=== PATIENT | female | born 2000 | race Caucasian/White ===

== ENCOUNTER 2022-07-29 18:04 | Emergency (ER) | payer OTHER ==
[2022-07-29 18:46] LABS: BASOPHILS % (AUTO) 0.4 %; EOSINOPHILS # (AUTO) 0.1 10^3/uL (0.0-0.7); EOSINOPHILS % (AUTO) 0.9 %; HCT - HEMATOCRIT 30.3 % (37.0-47.0); HGB - HEMOGLOBIN 8.7 g/dL (12.0-16.0); LYMPHOCYTES # (AUTO) 1.8 10^3/uL (1.5-3.5); LYMPHOCYTES % (AUTO) 18.4 %; MEAN CORPUSCULAR HEMOGLOBIN 21.4 pg (27.0-31.0); MEAN CORPUSCULAR HGB CONC 28.7 g/dL (32.0-36.0); MEAN CORPUSCULAR VOLUME 74.6 fL (81.0-99.0); MONOCYTES # (AUTO) 0.7 10^3/uL (0.0-1.0); MONOCYTES % (AUTO) 7.6 %; NEUTROPHILS # (AUTO) 6.9 10^3/uL (1.5-6.6); NEUTROPHILS % (AUTO) 72.4 %; PLT - PLATELET COUNT 283 10^3/uL (130-450); RED BLOOD COUNT 4.06 10^6/uL (4.20-5.40); RED CELL DISTRIBUTION WIDTH 16.7 % (12.0-15.0); WHITE BLOOD COUNT 9.5 x10^3/uL (4.8-10.8)
[2022-07-29 18:59] LABS: ALBUMIN 4.3 g/dL (3.2-5.5); ALBUMIN/GLOBULIN RATIO 1.1 (1.0-2.2); BILIRUBIN,TOTAL 0.2 mg/dL (0.2-1.0); CALCIUM 9.3 mg/dL (8.5-10.3); CREATININE 0.6 mg/dL (0.4-1.0); POTASSIUM 3.6 mmol/L (3.5-5.0); TOTAL PROTEIN 8.2 g/dL (6.7-8.2)
[2022-07-29 18:59] LABS: BILIRUBIN,URINE NEGATIVE (NEGATIVE); GLUCOSE, URINE (UA) NEGATIVE (NEGATIVE); KETONES,URINE (UA) NEGATIVE (NEGATIVE); LEUKOCYTE ESTERASE, URINE TRACE (NEGATIVE); NITRITE,URINE NEGATIVE (NEGATIVE); OCCULT BLOOD,URINE NEGATIVE (NEGATIVE); PROTEIN,URINE NEGATIVE (NEGATIVE); UROBILINOGEN,URINE 0.2 (NORMAL) E.U./dL (NORMAL)
[2022-07-29 19:02] LABS: CLARITY,URINE HAZY (CLEAR); HCG UR QUAL POSITIVE
[2022-07-29 19:05] LABS: BACTERIA,URINE Few /HPF (None Seen); RBC,URINE 0-5 /HPF (0-5); SQUAMOUS EPITHELIAL CELL,UR FEW Squamous (<= Few)
--- NOTE | 2022-07-29 19:46 | ED Physician Documentation ---
History of Present Illness - Stated complaint Stated Complaint: ABD PX - Chief complaint Chief Complaint: UTI - Additonal information Additional information: 21-year-old female presents emergency department for evaluation of lower abdominal pain and some dysuria. For about a week she has intermittently had some focal left-sided pain. Occasionally it has hurt to pee therefore she presents to the ER today. She is incidentally found to be on the urinalysis which the patient was not aware of. Patient denies any pertinent past medical history or surgeries. She does admit to drinking and vaping recently LMP 05/30/2022 G1, P0. This is a desired . Review of Systems Constitutional: denies: Fever, Chills Throat: reports: Reviewed and negative Cardiac: reports: Reviewed and negative Respiratory: reports: Reviewed and negative GI: reports: Abdominal Pain. denies: Nausea, Vomiting : reports: Dysuria Skin: reports: Reviewed and negative Musculoskeletal: reports: Reviewed and negative PD PAST MEDICAL HISTORY - Past Medical History Past Medical History: No - Past Surgical History Past Surgical History: No - Present Medications Home Medications: Ambulatory Orders Medication Instructions Recorded Confirmed cephALEXin [Keflex] 500 mg PO BID #14 cap 07/29/22 - Allergies Allergies/Adverse Reactions: Allergies Allergy/AdvReac Type Severity Reaction Status Date / Time No Known Drug Allergies Allergy Verified 07/29/22 18:28 - Social History Does the pt smoke?: No Smoking Status: Never smoker Does the pt drink ETOH?: No Does the pt have substance abuse?: No - Immunizations Immunizations are current?: Yes PD ED PE NORMAL - General General: Alert and oriented X 3, No acute distress, Well developed/nourished - HEENT HEENT: Atraumatic, Moist mucous membranes - Neck Neck: Supple, no meningeal sign, No adenopathy - Cardiac Cardiac: RRR, No murmur - Respiratory Respiratory: No respiratory distress, Clear bilaterally - Abdomen Abdomen: Normal bowel sounds, Soft. No: Non tender (Mild tenderness with palpation of the left lower quadrant. No guarding or rebound.) - Back Back: No CVA TTP - Derm Derm: Normal color, Warm and dry, No rash - Extremities Extremities: No deformity, No tenderness to palpate, Normal ROM s pain - Neuro Neuro: Alert and oriented X 3, administration clerk 2-12 intact Eye Opening: Spontaneous Motor: Obeys Commands Verbal: Oriented GCS Score: 15 Results - Vitals Vitals: Vital Signs - 24 hr 07/29/22 07/29/22 18:26 20:53 Temperature 36.0 C L 36.3 C L Heart Rate 90 79 Respiratory 20 18 Rate Blood Pressure 134/54 H 131/65 H O2 Saturation 100 99 Oxygen O2 Source Room air - Labs Labs: Laboratory Tests 07/29/22 07/29/22 07/29/22 18:41 18:41 18:53 WBC 9.5 RBC 4.06 L Hgb 8.7 L Hct 30.3 L MCV 74.6 L MCH 21.4 L MCHC 28.7 L RDW 16.7 H Plt Count 283 MPV 10.0 Neut # (Auto) 6.9 H Lymph # (Auto) 1.8 [place] # (Auto) 0.7 Eos # (Auto) 0.1 Baso # (Auto) 0.0 Absolute Nucleated RBC 0.00 Nucleated RBC % 0.0 Sodium 136 Potassium 3.6 Chloride 104 Carbon Dioxide 24 Anion Gap 8.0 BUN 9 Creatinine 0.6 Estimated GFR (MDRD) 124 Glucose 90 Calcium 9.3 Total Bilirubin 0.2 AST 14 ALT 10 Alkaline Phosphatase 33 L Total Protein 8.2 Albumin 4.3 Globulin 3.9 Albumin/Globulin Ratio 1.1 Lipase 36 HCG, Quant Urine Color YELLOW Urine Clarity HAZY Urine pH 6.0 Ur Specific [place] 1.025 Urine Protein NEGATIVE Urine Glucose (UA) NEGATIVE Urine Ketones NEGATIVE Urine Occult Blood NEGATIVE Urine Nitrite NEGATIVE Urine Bilirubin NEGATIVE Urine Urobilinogen 0.2 (NORMAL) Ur Leukocyte Esterase TRACE H Urine RBC 0-5 Urine WBC 11-25 H Ur Squamous Epith Cells FEW Squamous Urine Bacteria Few Ur Microscopic Review INDICATED Urine Culture Comments INDICATED Urine HCG, Qual POSITIVE Blood Type 07/29/22 07/29/22 19:48 19:48 WBC RBC Hgb Hct MCV MCH MCHC RDW Plt Count MPV Neut # (Auto) Lymph # (Auto) [place] # (Auto) Eos # (Auto) Baso # (Auto) Absolute Nucleated RBC Nucleated RBC % Sodium Potassium Chloride Carbon Dioxide Anion Gap BUN Creatinine Estimated GFR (MDRD) Glucose Calcium Total Bilirubin AST ALT Alkaline Phosphatase Total Protein Albumin Globulin Albumin/Globulin Ratio Lipase HCG, Quant 992.12 Urine Color Urine Clarity Urine pH Ur Specific [place] Urine Protein Urine Glucose (UA) Urine Ketones Urine Occult Blood Urine Nitrite Urine Bilirubin Urine Urobilinogen Ur Leukocyte Esterase Urine RBC Urine WBC Ur Squamous Epith Cells Urine Bacteria Ur Microscopic Review Urine Culture Comments Urine HCG, Qual Blood Type O NEGATIVE - Rads (name of study) OB US Radiology: Other (Per dairy manufacturing technologist questionable early gestational sac measuring at 4 weeks 6 days. Left subchorionic bleed 1.9 Centimeters.) PD MEDICAL DECISION MAKING - ED course Complexity details: reviewed results, re-evaluated patient ED course: 21-year-old female presents emergency department for left lower quadrant abdominal pain and urinary symptoms. Symptoms have been intermittent for 1 week. She was incidentally found to be today on her UA. Urinalysis today is consistent with infection. Given she will be star jamey on Keflex. Given the left lower quadrant abdominal pain we did complete a pelvic ultrasound that shows an early gestational sac measuring just over 4 weeks. Her quant is just over 900. CBC today is interesting in that it shows a marked anemia with a hemoglobin of 8.7. Patient reports that she thinks she is anemic because she likes to eat ice she rarely eats meat. I am encouraging her to begin taking a daily multivitamin and we discussed the anemia in can be concerning. We also discussed that the ultrasound showed a very small subchorionic hemorrhage that could threaten the and that this is a desired . She is encouraged to establish with OB as soon as possible. I have given her the name of our Dr. Vern De Oliveira. Emergent return precautions were discussed. Departure - Departure Disposition: 01 Home, Self Care Clinical Impression: Acute cystitis during in first trimester Subchorionic hemorrhage in first trimester Qualifiers: Fetus number: single or unspecified fetus Qualified Code(s): O41.8X10 - Other specified disorders of amniotic fluid and membranes, first trimester, not applicable or unspecified; O46.8X1 - Other antepartum hemorrhage, first trimester Anemia Qualifiers: Anemia type: iron deficiency Iron deficiency anemia type: inadequate dietary iron intake Qualified Code(s): D50.8 - Other iron deficiency anemias Instructions: ED Preg Established Normal Sxs Follow-Up: Vern De Oliveira MD [Provider Admit Priv/Credential] - Prescriptions: cephALEXin [Keflex] 500 mg PO BID #14 cap Comments: You are seen today in the emergency department for urinary symptoms. You do have a urinary tract infection. However you are also incidentally found to be . The ultrasound today measures you at just over 4 weeks . There was a finding called a subchorionic hemorrhage near the uterus. This can sometimes threaten pregnancies but at this time you are asymptomatic. In order to treat the urinary tract infection a prescription for Keflex has been sent to the [facility] in [place]. Our labs today also show that you are fairly anemic with a hemoglobin of 8.7. I encourage you to begin taking a daily multivitamin that it includes iron and folate. It is important that you establish with an OB to help you manage the rest of this . I have given you the name of Dr. De Oliveira one of the OB providers here at [facility]. At any point you develop fevers, have severe vaginal bleeding, sudden severe lower abdominal pain or any uncontrolled vomiting then please return to the ER for second evaluation
[2022-07-29 20:54] VITALS: BP 131/65
[2022-07-29] MEDS ORDERED: cephALEXin 250 MG CAPSULE PO STA (21:01)
--- NOTE | 2022-07-29 23:13 | Ultrasound Report ---
PROCEDURE: OB First Trimester w/TV INDICATIONS: cramping OUTSIDE/PRIOR DATING DATA: Last menstrual period (LMP): Unsure. TECHNIQUE: Real-time scanning was performed of the fetus and maternal pelvic organs, with image documentation. Endovaginal scanning was also performed to better visualize the fetus and maternal ovaries. COMPARISON: None. FINDINGS: Embryo: There is a small hypoechoic cystic structure within the uterus which may represent a small g estational sac. This demonstrates a mean sac diameter of 0.24 cm corresponding to gestational age of 4 weeks 6 days. There is an adjacent hypoechoic region suggestive of a subchorionic hematoma measurin g up to 1.9 x 0.3 x 1 cm. Measurement variability in dating: +/- 4 weeks by LMP, +/- 7 days by mean sac diameter (use before 6 weeks gestation if crown-rump length not able to be measured), +/- 5 days by crown-rump length (6-12 weeks gestation). Maternal organs: There is a thick-walled cystic structure within the left ovary measuring approximate ly 1.7 x 1.8 x 1.5 cm which may represent a corpus luteal cyst. Right ovary appears within normal siz e limits without adnexal mass. IMPRESSION: 1. Small hypoechoic structure within the uterus represent a small gestational sac measurements corres ponding to a gestational age of 4 weeks 6 days and estimated delivery date of approximately 04/01/2023. However, this may also reflect a pseudo-gestational sac. Ectopic cannot be excluded. Clini tanika follow-up is recommended as well as a repeat ultrasound if indicated. 2. Thick wall cystic structure within the left ovary likely represents a corpus luteal cyst. 3. Small subchorionic hematoma. Reviewed by: Sj Brito MD on 07/29/2022 11:12 PM PDT Approved by: Sj Brito MD on 07/29/2022 11:12 PM PDT Station ID: [id number]
== END 2022-07-29 21:18 | disposition home or self-care (01) ==
LOC: ED 18:04
DX: O23.11 Infections of bladder in pregnancy, first trimester (principal); Z3A.01 Less than 8 weeks gestation of pregnancy
CPT/HCPCS: 36415; 76801; 76817; 80053; 81001; 81025; 83690; 84702; 85025; 86900; 86901; 87077; 87086; 87181; 99283; 99284; A9270; 80048; 81003

== ENCOUNTER 2022-08-12 08:00 | Outpatient (CLI) | payer OTHER ==
[2022-08-12 17:02] LABS: BILIRUBIN,URINE NEGATIVE (NEGATIVE); GLUCOSE, URINE (UA) NEGATIVE (NEGATIVE); KETONES,URINE (UA) NEGATIVE (NEGATIVE); LEUKOCYTE ESTERASE, URINE NEGATIVE (NEGATIVE); NITRITE,URINE NEGATIVE (NEGATIVE); OCCULT BLOOD,URINE NEGATIVE (NEGATIVE); PROTEIN,URINE NEGATIVE (NEGATIVE); UROBILINOGEN,URINE 0.2 (NORMAL) E.U./dL (NORMAL)
[2022-08-12 19:03] LABS: BACTERIA,URINE None Seen /HPF (None Seen); CLARITY,URINE CLEAR (CLEAR); RBC,URINE None Seen /HPF (0-5); SQUAMOUS EPITHELIAL CELL,UR RARE Squamous (<= Few); WBC,URINE 0-3 /HPF (0-5)
== END 2022-08-12 23:59 | disposition home or self-care (01) ==
LOC: LAB.WC 08:00
PROVIDERS: ATTEND Obstetrics & Gynecology
DX: Z34.90 Encounter for supervision of normal pregnancy, unspecified, unspecified trimester (principal)
CPT/HCPCS: 81001; 87086

== ENCOUNTER 2022-08-23 07:16 | Outpatient (CLI) | payer OTHER ==
--- NOTE | 2022-08-23 10:15 | Ultrasound Report ---
PROCEDURE: OB First Trimester w/TV INDICATIONS: POSITIVE TEST OUTSIDE/PRIOR DATING DATA: Last menstrual period (LMP): 06/28/2022. LMP-based estimated date of delivery (BRETT): 04/04/2023. TECHNIQUE: Real-time scanning was performed of the fetus and maternal pelvic organs, with image documentation. Endovaginal scanning was also performed to better visualize the fetus and maternal ovaries. COMPARISON: 07/29/2022. FINDINGS: An intrauterine gestational sac is present with a mean sac diameter of 32 mm. A yolk sac is present. No embryo visualized. A subchorionic hemorrhage is present measuring up to 2.7 cm. Embryo: Not visualized. Heart rate: Not applicable. Measurement variability in dating: +/- 4 weeks by LMP, +/- 7 days by mean sac diameter (use before 6 weeks gestation if crown-rump length not able to be measured), +/- 5 days by crown-rump length (6-12 weeks gestation). Maternal organs: Ovaries are unremarkable. A left corpus luteum is present. IMPRESSION: An intrauterine gestational sac is present with mean sac diameter of 32 mm and no embryo visualized. Findings are diagnostic of failure. Reviewed by: Talon Melendez MD on 08/23/2022 10:13 AM [facility] Approved by: Talon Melendez MD on 08/23/2022 10:13 AM PST Station ID: [id number]
== END 2022-08-23 07:17 | disposition home or self-care (01) ==
LOC: DI 07:16
PROVIDERS: ATTEND Obstetrics & Gynecology
DX: Z34.90 Encounter for supervision of normal pregnancy, unspecified, unspecified trimester (principal)

== ENCOUNTER → 2022-09-12 | Outpatient (CLI) | payer OTHER | END | disposition EMS.NT | LOC: EMS 02:04 | DX: R07.9 Chest pain, unspecified (principal); R00.0 Tachycardia, unspecified; F41.9 Anxiety disorder, unspecified ==

== ENCOUNTER 2022-09-16 10:08 | Emergency (ER) | payer OTHER ==
[2022-09-16] MEDS: ACETAMINOPHEN 325 MG TABLET PO STA (12:53)
--- NOTE | 2022-09-16 13:07 | XRAY Report ---
PROCEDURE: Chest 1 View X-Ray INDICATIONS: chest pain TECHNIQUE: One view of the chest was acquired. COMPARISON: None. FINDINGS: Surgical changes and devices: None. Lungs and pleura: No pleural effusions or pneumothorax. Lungs are clear. Mediastinum: Mediastinal contours appear normal. Heart size is normal. Bones and chest wall: No suspicious bony lesions. Overlying soft tissues appear unremarkable. IMPRESSION: No acute cardiopulmonary pathology. Reviewed by: Luciano Quintero MD on 09/16/2022 1:06 PM [facility] Approved by: Luciano Quintero MD on 09/16/2022 1:06 PM [facility] Station ID: [id number]
--- NOTE | 2022-09-16 13:08 | ED Physician Documentation ---
History of Present Illness - Stated complaint Stated Complaint: CHEST PX/PANIC ATTACK - Chief complaint Chief Complaint: General - History obtained from History obtained from: Patient - History of Present Illness Timing: How many days ago (2) Pain level max: 1 Pain level now: 0 - Additonal information Additional information: Patient is a 21-year-old female who presents to the emergency department complaining of intermittent chest pain. She states sometimes is on the right side, sometimes on the left. She states that last for about 1 second at a time. Nonradiating. Nothing makes it better or worse. Occurs 3 or 4 times throughout the day. She states that she had a recent miscarriage approximately 3 weeks ago. She states that she had a panic attack 2 days ago. Currently she is asymptomatic. No leg pain, no calf pain or swelling. Review of Systems Constitutional: denies: Fever, Chills Respiratory: denies: Dyspnea, Cough GI: denies: Abdominal Pain, Abdominal Swelling, Nausea, Vomiting, Diarrhea Skin: denies: Rash Musculoskeletal: denies: Neck pain, Back pain Neurologic: denies: Headache PD PAST MEDICAL HISTORY - Past Medical History Past Medical History: Yes Psych: Anxiety, Panic attacks - Past Surgical History Past Surgical History: No - Present Medications Home Medications: Ambulatory Orders Medication Instructions Recorded Confirmed cephALEXin [Keflex] 500 mg PO BID #14 cap 07/29/22 - Allergies Allergies/Adverse Reactions: Allergies Allergy/AdvReac Type Severity Reaction Status Date / Time No Known Drug Allergies Allergy Verified 09/16/22 10:23 - Social History Does the pt smoke?: No Smoking Status: Never smoker Does the pt drink ETOH?: No Does the pt have substance abuse?: No - Immunizations Immunizations are current?: Yes PD ED PE NORMAL - Vitals Vital signs reviewed: Yes - General General: Alert and oriented X 3, No acute distress - HEENT HEENT: PERRL, Moist mucous membranes - Neck Neck: Supple, no meningeal sign, No JVD - Cardiac Cardiac: RRR, No murmur, Strong equal pulses - Respiratory Respiratory: No respiratory distress, Clear bilaterally - Abdomen Abdomen: Soft, Non tender, Non distended - Derm Derm: Warm and dry - Extremities Extremities: No edema, No calf tenderness / cord - Neuro Neuro: Alert and oriented X 3 - Psych Psych: Normal mood, Normal affect Results - Vitals Vitals: Vital Signs - 24 hr 09/16/22 09/16/22 10:21 13:34 Temperature 36.4 C L 36.6 C Heart Rate 78 75 Respiratory 20 16 Rate Blood Pressure 131/67 H 115/89 H O2 Saturation 100 98 Oxygen O2 Source Room air - EKG (time done) 1247 Rate: Rate (enter#) (72) Rhythm: NSR [place]: Normal Intervals: Normal [place] QRS: Normal Ischemia: Normal ST segments - Rads (name of study) Chest x-ray Radiology: Final report received, See rad report PD Medical Decision Making - ED course Complexity details: reviewed results, re-evaluated patient, considered differential (No ST elevation GA, no aortic dissection, no PE, no tension pneumothorax, no aortic aneurysm), d/w patient ED course: Patient with atypical chest pain. Unclear etiology. No evidence of acute coronary syndrome, PE, pneumothorax. No acute findings on EKG, laboratory testing or chest x-ray. We will utilize Tylenol and Motrin as needed for pain and have her follow-up with her doctor. Patient counseled regarding signs and symptoms for which I believe and urgent re-evaluation would be necessary. Patient with good understanding of and agreement to plan and is comfortable going home at this time This document was made in part using voice recognition software. While efforts are made to proofread this document, sound alike and grammatical errors may occur. Departure - Departure Disposition: 01 Home, Self Care Clinical Impression: Chest pain Qualifiers: Chest pain type: unspecified Qualified Code(s): R07.9 - Chest pain, unspecified Condition: Good Instructions: ED Chest Pain Atypical Unkn Cause Follow-Up: Raffi Goel MD [Primary Care Provider] - Comments: Please follow-up with your doctor for further care. The cause of your symptoms is unclear. Your x-ray and EKG did not show any acute abnormalities today. Please return if you worsen. Discharge Date/Time: 09/16/22 13:35
[2022-09-16 13:35] VITALS: BP 115/89
== END 2022-09-16 13:35 | disposition home or self-care (01) ==
LOC: ED 10:08
DX: R07.89 Other chest pain (principal)
CPT/HCPCS: 71045; 93005; 99282; 99283; A9270

== ENCOUNTER 2022-09-18 15:09 | Outpatient (CLI) | payer OTHER | END 2022-09-18 15:10 | disposition EMS.NT | LOC: EMS 15:09 | DX: F41.9 Anxiety disorder, unspecified (principal) ==

== ENCOUNTER 2023-10-19 22:35 | Outpatient (CLI) | payer OTHER | END 2023-10-19 23:59 | disposition critical access hospital (66) | LOC: EMS 22:35 | DX: R06.02 Shortness of breath (principal); R07.89 Other chest pain; F41.9 Anxiety disorder, unspecified; U07.1 COVID-19 | CPT/HCPCS: A0425; A0429 ==

== ENCOUNTER 2023-10-19 23:01 | Emergency (ER) | payer OTHER ==
[2023-10-19 23:23] VITALS: BP 142/94; O2SAT 100
[2023-10-19 23:54] LABS: BASOPHILS % (AUTO) 0.2 %; EOSINOPHILS # (AUTO) 0.1 10^3/uL (0.0-0.7); EOSINOPHILS % (AUTO) 1.6 %; HCT - HEMATOCRIT 39.3 % (37.0-47.0); HGB - HEMOGLOBIN 12.4 g/dL (12.0-16.0); LYMPHOCYTES # (AUTO) 1.2 10^3/uL (1.5-3.5); LYMPHOCYTES % (AUTO) 23.5 %; MEAN CORPUSCULAR HEMOGLOBIN 27.4 pg (27.0-31.0); MEAN CORPUSCULAR HGB CONC 31.6 g/dL (32.0-36.0); MEAN CORPUSCULAR VOLUME 86.9 fL (81.0-99.0); MEAN PLATELET VOLUME 10.9 fL (7.9-10.8); MONOCYTES # (AUTO) 0.6 10^3/uL (0.0-1.0); NEUTROPHILS % (AUTO) 61.5 %; PLT - PLATELET COUNT 184 10^3/uL (130-450); RED BLOOD COUNT 4.52 10^6/uL (4.20-5.40); RED CELL DISTRIBUTION WIDTH 13.7 % (12.0-15.0); WHITE BLOOD COUNT 4.9 x10^3/uL (4.8-10.8)
--- NOTE | 2023-10-20 00:10 | XRAY Report ---
PROCEDURE: Chest 1V INDICATIONS: chest pain TECHNIQUE: One view of the chest was acquired. COMPARISON: Chest x-ray, 09/16/2022. FINDINGS: Surgical changes and devices: None. Lungs and pleura: No pleural effusions or pneumothorax. Lungs are clear. Mediastinum: Mediastinal contours appear normal. Heart size is normal. Bones and chest wall: No suspicious bony lesions. Overlying soft tissues appear unremarkable. IMPRESSION: No acute cardiopulmonary process. Reviewed by: Boris Raman MD on 10/20/2023 12:09 AM [facility] Approved by: Boris Raman MD on 10/20/2023 12:09 AM [facility] Station ID: [id number]
[2023-10-20 00:18] LABS: ALBUMIN/GLOBULIN RATIO 1.3 (1.0-2.2); BILIRUBIN,TOTAL 0.2 mg/dL (0.2-1.0); CALCIUM 9.2 mg/dL (8.5-10.3); CREATININE 0.6 mg/dL (0.6-1.3); POTASSIUM 3.6 mmol/L (3.5-4.5); TOTAL PROTEIN 7.1 g/dL (6.4-8.9)
[2023-10-20 00:21] LABS: TROPONIN I HIGH SENSITIVITY 2.3 ng/L (2.3-14.8)
--- NOTE | 2023-10-20 00:42 | ED Physician Documentation ---
PD HPI CHEST PAIN - Stated complaint Stated Complaint: CHEST PRESSURE - Chief complaint Chief Complaint: Cardiac - History obtained from History obtained from: Patient, EMS - History of Present Illness Timing - onset: Today Timing - onset during: Rest Timing - duration: Minutes Timing - details: Abrupt onset, Now resolved Quality: Pressure, Sharp, Pain Location: Substernal, Left chest Radiation: Abdominal Improved by: Nothing Worsened by: Other (nothing) Associated symptoms: Shortness of air Similar symptoms before: No diagnosis, Work up / diagnostics (worked up for similar chest pain 2 years ago) Recently seen: Not recently seen - Additional information Additional information: 22-year-old Marcel Keller has developed symptoms 4 days ago of congestion and bodyaches and tested positive for COVID 3 days ago. 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 The 2 of them were vaping together last week. The patient indicates that she has been having a very difficult time getting any air in and out through her nose and this evening she developed left-sided chest pains and called the ambulance. She indicates pains last 1 to 2 minutes. She has had similar pains 2 years ago. She does not have a history of asthma, diabetes, hypertension or obesity.She tells me that she had a single dose of COVID vaccination and that she believes she may have had COVID early. Review of Systems Constitutional: reports: Chills, Myalgias, Fatigue. denies: Fever Ears: denies: Ear pain Nose: reports: Congestion. denies: Rhinorrhea / runny nose Throat: reports: Sore throat Cardiac: reports: Chest pain / pressure. denies: Palpitations, Pedal edema, Calf pain Respiratory: reports: Cough. denies: Dyspnea, Wheezing GI: reports: Abdominal Pain. denies: Nausea, Vomiting, Constipation, Diarrhea : denies: Dysuria, Frequency PD PAST MEDICAL HISTORY - Past Medical History Past Medical History: Yes Psych: Anxiety, Panic attacks - Past Surgical History Past Surgical History: No - Present Medications Home Medications: Ambulatory Orders Medication Instructions Recorded Confirmed Ferrous Sulfate [Feosol] 1 tab PO DAILY 10/19/23 10/19/23 - Allergies Allergies/Adverse Reactions: Allergies Allergy/AdvReac Type Severity Reaction Status Date / Time No Known Drug Allergies Allergy Verified 10/19/23 23:19 - Social History Does the pt smoke?: No Smoking Status: Never smoker Does the pt drink ETOH?: Yes ETOH Use: Wine, Liquor Does the pt have substance abuse?: No - Immunizations Immunizations are current?: Yes - POLST Patient has POLST: No PD ED PE NORMAL - Vitals Vital signs reviewed: Yes (hypertensive) - General General: Alert and oriented X 3, No acute distress, Well developed/nourished - HEENT HEENT: Atraumatic, PERRL, EOMI, Ears normal, Moist mucous membranes, Pharynx benign, Dentition benign - Neck Neck: Supple, no meningeal sign, No bony TTP - Cardiac Cardiac: RRR, No murmur - Respiratory Respiratory: No respiratory distress, Clear bilaterally - Abdomen Abdomen: Soft, Non tender - Back Back: No CVA TTP, No spinal TTP - Derm Derm: Normal color, Warm and dry, No rash - Extremities Extremities: No deformity, No edema - Neuro Neuro: Alert and oriented X 3, build manager 2-12 intact, No motor deficit, No sensory deficit, Normal speech Eye Opening: Spontaneous Motor: Obeys Commands Verbal: Oriented GCS Score: 15 - Psych Psych: Normal mood, Normal affect Results - Vitals Vitals: Vital Signs - 24 hr 10/19/23 23:00 Temperature 36.8 C Heart Rate 87 Respiratory 16 Rate Blood Pressure 142/94 H O2 Saturation 100 Oxygen O2 Source Room air - EKG (time done) 2359 EKG releavant findings:: EKG personally interpreted by author of this note. Relevant findings are: Rate: Rate (enter#) (77) Rhythm: NSR Ischemia: Non specific changes (borderline T abnormalities diffuse leads) Compare to prior EKG: Changed from prior EKG (SPT 09-16- the T-wave abnormalities have developed. ) Computer interpretation: Agree with computer - Labs Labs: Laboratory Tests 10/19/23 10/19/23 23:45 23:45 WBC 4.9 RBC 4.52 Hgb 12.4 Hct 39.3 MCV 86.9 MCH 27.4 MCHC 31.6 L RDW 13.7 Plt Count 184 MPV 10.9 H Neut # (Auto) 3.0 Lymph # (Auto) 1.2 L [place] # (Auto) 0.6 Eos # (Auto) 0.1 Baso # (Auto) 0.0 Absolute Nucleated RBC 0.00 Nucleated RBC % 0.0 Sodium 136 Potassium 3.6 Chloride 103 Carbon Dioxide 26 Anion Gap 7.0 BUN 13 Creatinine 0.6 Estimated GFR (MDRD) 123 Glucose 100 Calcium 9.2 Total Bilirubin 0.2 AST 20 ALT 16 Alkaline Phosphatase 46 Troponin I High Sens 2.3 Total Protein 7.1 Albumin 4.0 Globulin 3.1 Albumin/Globulin Ratio 1.3 Lipase 39 - Rads (name of study) chest Relevant Findings:: Prelim report reviewed (Impression: No acute cardiopulmonary process.), EMP independent interpretation of test, See rad report PD Medical Decision Making - ED course Complexity details: reviewed old records, reviewed results, re-evaluated patient, considered differential, d/w patient Reviewed Lab Results: We reviewed a complete blood count showing a normal white blood cell count normal hemoglobin hematocrit and platelets and normal indices chemistries showed normal electrolytes normal kidney and liver function normal pancreatic function and normal high-sensitivity troponin. These laboratory tests are all in the normal range and do not contribute to a specific diagnosis. They are reassuring for a benign process. ED course: 22-year-old female with atypical chest pains that last up to 1 minute is an unremarkable electrocardiogram chest x-ray and troponin. She does have COVID by history. She does not have a history of asthma, diabetes, hypertension or obesity. Treatment with Paxlovid is not indicated. She does not appear significantly ill at this time. Departure - Departure Disposition: 01 Home, Self Care Clinical Impression: Atypical chest pain, COVID Condition: Stable Instructions: ED Chest Pain Atypical Unkn Cause, Flu and Cold: Nutrition, Prevention and Treatment Tips Follow-Up: Raffi Goel MD [Provider Admit Priv/Credential] - Comments: Marcel, today we did not discover a specific reason for your intermittent chest pain. You do have COVID and the expected recovery from this is 5 to 7 days. Be certain to hydrate as this is the part that we will generally get people in trouble. Discharge Date/Time: 10/20/23 01:19
== END 2023-10-20 01:19 | disposition home or self-care (01) ==
LOC: EDUNIT# → ED 23:01
DX: R07.89 Other chest pain (principal); U07.1 COVID-19
CPT/HCPCS: 36415; 80053; 83690; 84484; 85025; 93005; 99283; 99284

== ENCOUNTER 2023-12-22 08:00 | Outpatient (CLI) | payer OTHER ==
[2023-12-22 20:48] LABS: CHLAMYDIA TRACHOMATIS DNA NEGATIVE (NEGATIVE); NEISSERIA GONORRHOEAE DNA NEGATIVE (NEGATIVE); TRICHOMONAS VAGINALIS DNA NEGATIVE (NEGATIVE)
== END 2023-12-22 23:59 | disposition home or self-care (01) ==
LOC: LAB.N 08:00
PROVIDERS: ATTEND Physician Assistant
DX: R30.0 Dysuria (principal)
CPT/HCPCS: 87491; 87591; 87661

== ENCOUNTER 2024-04-20 09:38 | Outpatient (CLI) | payer OTHER | END 2024-04-20 23:59 | disposition critical access hospital (66) | LOC: EMS 09:38 | DX: R10.12 Left upper quadrant pain (principal); R11.0 Nausea; R19.7 Diarrhea, unspecified; R10.812 Left upper quadrant abdominal tenderness | CPT/HCPCS: A0425; A0429 ==

== ENCOUNTER 2024-04-20 10:01 | Emergency (ER) | payer OTHER ==
[2024-04-20 10:17] VITALS: O2SAT 98
--- NOTE | 2024-04-20 10:25 | ED Physician Documentation ---
PD HPI ABD PAIN - Stated complaint Stated Complaint: ABD PX - Chief complaint Chief Complaint: Abd Pain - Additional information Additional information: Otherwise healthy 23-year-old female presenting with abdominal pain. Patient was doing well until Friday evening when she went home early from work with abdominal pain. She describes pain in her left upper quadrant and left flank. No lower abdominal tenderness. No urinary symptoms. Nauseous no vomiting no diarrhea. Does not think she is . No concerns for STIs Review of Systems Constitutional: denies: Fever, Chills PD PAST MEDICAL HISTORY - Past Medical History Past Medical History: Yes Psych: Anxiety, Panic attacks - Past Surgical History Past Surgical History: No - Present Medications Home Medications: Ambulatory Orders Medication Instructions Recorded Confirmed Ferrous Sulfate [Feosol] 1 tab PO DAILY 10/19/23 10/19/23 Ondansetron Odt [Zofran] 4 mg TL Q6H PRN #10 tablet 04/20/24 cephALEXin [Keflex] 500 mg PO Q6H #28 cap 04/20/24 - Allergies Allergies/Adverse Reactions: Allergies Allergy/AdvReac Type Severity Reaction Status Date / Time No Known Drug Allergies Allergy Verified 04/20/24 10:11 - Social History Does the pt smoke?: Yes Smoking Status: Current every day smoker Does the pt drink ETOH?: Yes Does the pt have substance abuse?: No Substance Use and Type: Marijuana - Immunizations Immunizations are current?: Yes - POLST Patient has POLST: No PD ED PE NORMAL - Vitals Vital signs reviewed: Yes - General General: Alert and oriented X 3 - HEENT HEENT: Atraumatic, Moist mucous membranes, Pharynx benign - Neck Neck: Supple, no meningeal sign - Cardiac Cardiac: RRR, No murmur - Respiratory Respiratory: No respiratory distress - Abdomen Abdomen: Soft, Other (Left upper quadrant and left flank tenderness. No guarding or rebound) - Female Female : Deferred - Neuro Neuro: Alert and oriented X 3 Results - Vitals Vitals: Vital Signs - 24 hr 04/20/24 10:05 Temperature 36.3 C L Heart Rate 70 Respiratory 12 Rate Blood Pressure 157/68 H O2 Saturation 98 Oxygen O2 Source Room air - Labs Labs: Laboratory Tests 04/20/24 04/20/24 04/20/24 10:18 10:18 10:40 WBC 11.2 H RBC 4.80 Hgb 12.8 Hct 40.3 MCV 84.0 MCH 26.7 L MCHC 31.8 L RDW 14.0 Plt Count 200 MPV 10.8 Neut # (Auto) 9.9 H Lymph # (Auto) 0.6 L [place] # (Auto) 0.6 Eos # (Auto) 0.0 Baso # (Auto) 0.0 Absolute Nucleated RBC 0.00 Nucleated RBC % 0.0 Sodium 136 Potassium 3.6 Chloride 100 L Carbon Dioxide 28 Anion Gap 8.0 BUN 9 Creatinine 0.6 Estimated GFR (MDRD) 122 Glucose 113 H Calcium 10.0 Total Bilirubin 0.8 AST 14 ALT 12 Alkaline Phosphatase 36 L Total Protein 9.0 H Albumin 4.9 Globulin 4.1 Albumin/Globulin Ratio 1.2 Lipase 15 Urine Color DARK YELLOW Urine Clarity SL. CLOUDY Urine pH 6.0 Ur Specific [place] >=1.030 H Urine Protein 100 H Urine Glucose (UA) NEGATIVE Urine Ketones >=80 H Urine Occult Blood LARGE H Urine Nitrite NEGATIVE Urine Bilirubin SMALL H Urine Urobilinogen 1 (NORMAL) Ur Leukocyte Esterase NEGATIVE Urine RBC 11-25 H Urine WBC 11-25 H Ur Squamous Epith Cells MANY Squamous H Urine Bacteria Moderate H Ur Microscopic Review INDICATED Urine Culture Comments NOT INDICATED Urine HCG, Qual NEGATIVE - Rads (name of study) ct abd/pelvis Relevant Findings:: Other (No overt hydronephrosis. No calcified obstructing stone. ) PD Medical Decision Making - ED course Complexity details: reviewed old records, reviewed results, re-evaluated patient, considered differential (Stone versus pyelo-. No lower abdominal tenderness to indicate ovarian torsion or appendicitis.) ED course: completely benign presentation here we will discharge her home with follow-up with PCP. 23-year-old with left flank pain for 24 hours. Some nausea and vomiting. Urine shows white cells and red cells. hCG negative. CT KUB shows no stone. Will treat with antibiotics and antiemetics for possible pyelo Departure - Departure Disposition: 01 Home, Self Care Clinical Impression: Pyelonephritis Instructions: Pyelonephritis Dc Prescriptions: cephALEXin [Keflex] 500 mg PO Q6H #28 cap Ondansetron Odt [Zofran] 4 mg TL Q6H PRN #10 tablet PRN Reason: Nausea / Vomiting Comments: your CAT scan shows no kidney stone or any other intra-abdominal or surgical emergency. Your urine does indicate that you probably have a kidney infection. We will give you antibiotics and nausea medicine for home. You should expect to feel better in 2 to 3 days. Forms: PCP List
[2024-04-20 10:30] LABS: BASOPHILS % (AUTO) 0.3 %; HCT - HEMATOCRIT 40.3 % (37.0-47.0); HGB - HEMOGLOBIN 12.8 g/dL (12.0-16.0); LYMPHOCYTES # (AUTO) 0.6 10^3/uL (1.5-3.5); LYMPHOCYTES % (AUTO) 5.2 %; MEAN CORPUSCULAR HEMOGLOBIN 26.7 pg (27.0-31.0); MEAN CORPUSCULAR HGB CONC 31.8 g/dL (32.0-36.0); MEAN PLATELET VOLUME 10.8 fL (7.9-10.8); MONOCYTES # (AUTO) 0.6 10^3/uL (0.0-1.0); MONOCYTES % (AUTO) 5.2 %; NEUTROPHILS # (AUTO) 9.9 10^3/uL (1.5-6.6); NEUTROPHILS % (AUTO) 88.9 %; PLT - PLATELET COUNT 200 10^3/uL (130-450); WHITE BLOOD COUNT 11.2 x10^3/uL (4.8-10.8)
[2024-04-20] MEDS: KETOROLAC 30 MG/ML VIAL IVP STA (10:43)
[2024-04-20] MEDS: ONDANSETRON 4 MG/2 ML VIAL IVP STA (10:43)
[2024-04-20] MEDS: SODIUM CHLORIDE 0.9% 1,000 ML IV STA (10:43)
[2024-04-20 10:45] LABS: ALBUMIN 4.9 g/dL (3.2-5.5); ALBUMIN/GLOBULIN RATIO 1.2 (1.0-2.2); BILIRUBIN,TOTAL 0.8 mg/dL (0.2-1.0); CREATININE 0.6 mg/dL (0.6-1.3); POTASSIUM 3.6 mmol/L (3.5-4.5)
[2024-04-20 11:01] LABS: BILIRUBIN,URINE SMALL (NEGATIVE); GLUCOSE, URINE (UA) NEGATIVE (NEGATIVE); KETONES,URINE (UA) >=80 mg/dL (NEGATIVE); LEUKOCYTE ESTERASE, URINE NEGATIVE (NEGATIVE); NITRITE,URINE NEGATIVE (NEGATIVE); OCCULT BLOOD,URINE LARGE (NEGATIVE); PROTEIN,URINE 100 mg/dL (NEGATIVE); UROBILINOGEN,URINE 1 (NORMAL) E.U./dL (NORMAL)
[2024-04-20 11:19] LABS: CLARITY,URINE SL. CLOUDY (CLEAR); HCG UR QUAL NEGATIVE
--- NOTE | 2024-04-20 11:19 | CT Report ---
PROCEDURE: Abdomen/Pelvis WO INDICATIONS: L flank pain TECHNIQUE: A CT scan of the abdomen and pelvis was performed without the use of intravenous contrast. Images we re recorded and evaluated at appropriate window settings. Reformats: coronal and sagittal. For radiat ion dose reduction, the following was used: automated exposure control, adjustment of mA and/or kV ac cording to patient size. COMPARISON: None. FINDINGS: Image quality: Diagnostic Lower chest: Lung bases are unremarkable Liver: Solid organs are not well evaluated IV contrast. No contour deforming mass Gallbladder and biliary system: Unremarkable, nondilated Pancreas: No ductal dilation Spleen: Nonenlarged Adrenals: No discrete nodules Kidneys: No calcified obstructing stone. There is hyperattenuating appearance of the renal pyramids b ilaterally. No overt hydronephrosis Vessels and lymph nodes: No aneurysmal vessel identified on this noncontrast CT. No pathologic lymph nodes by size criteria. Bowel and peritoneum: No evidence of small bowel obstruction. No pathologic ascites. Body wall: Possible postsurgical changes versus nonspecific midline abdominal fat stranding. No drain able fluid collection Pelvis: Bladder is underdistended and not well evaluated. No calcified stone identified. Reproductive organs are unremarkable limited CT evaluation, consider ultrasound if there is concern Bones: No acute or suspicious osseous finding. IMPRESSION: No overt hydronephrosis. No calcified obstructing stone. Hyperattenuating appearance of the renal pyramids can sometimes be seen with medullary nephrocalcinos is. Other findings as above. Reviewed by: Kyaw Grover MD on 04/20/2024 11:18 AM PDT Approved by: Kyaw Grover MD on 04/20/2024 11:18 AM PDT Station ID: [id number]
[2024-04-20 11:20] LABS: BACTERIA,URINE Moderate /HPF (None Seen); SQUAMOUS EPITHELIAL CELL,UR MANY Squamous (<= Few)
[2024-04-20 12:22] VITALS: BP 120/81
== END 2024-04-20 12:29 | disposition home or self-care (01) ==
LOC: EDUNIT# → ED 10:01
DX: N12 Tubulo-interstitial nephritis, not specified as acute or chronic (principal); F17.290 Nicotine dependence, other tobacco product, uncomplicated
CPT/HCPCS: 36415; 80053; 81001; 81003; 81025; 83690; 85025; 87086; 96361; 96374; 99284